=== PATIENT | male | born 1955 | race Hispanic/Latino ===

== ENCOUNTER 2017-02-21 10:38 | Day surgery (SDC) | payer OTHER ==
[2017-02-19 10:39] VITALS: BMI 24.5
[2017-02-21] MEDS ORDERED: Lidocaine 2% w Epi 1:100,000 Inj IJ ONE (12:05)
[2017-02-21 13:08] VITALS: RESP 18; TEMP 98; O2SAT 100
[2017-02-21 13:31] VITALS: BP 122/75; PULSE 62
--- NOTE | 2017-03-01 01:50 | PROCN ---
PROCEDURE DATE: DIAGNOSES: Voluntary sterilization, bilateral vasectomy. DESCRIPTION OF PROCEDURE: The patient is prepped and draped in usual manner, given local anesthesia using Xylocaine with 25 needle and the injections were made bilaterally. Two bilateral small incisions were made through the skin and isolated bilaterally and segment of the vas was removed, and the proximal and distal ends were hemoclipped and cauterized. This was done bilaterally and the vas was replaced into the scrotum. The skin was closed using interrupted 3-0 chromic. Yifan Moraes MD
== END 2017-02-21 13:30 | disposition home or self-care (01) ==
LOC: C.SDS 10:38
PROVIDERS: ATTEND Urology
DX: Z30.2 Encounter for sterilization (principal)